=== PATIENT | female | born 1960 | race African-American/Black ===

== ENCOUNTER 2017-03-05 00:14 | Emergency (ER) | payer SELFPAY ==
[~2017-03-05] VITALS: Ht 172.7 cm; Wt 136.0 kg
[2017-03-05 01:07] LABS: BASOPHILS % 1.1 % (0.0-2.0); EOSINOPHILS % 1.5 % (0.0-5.0); HEMATOCRIT. 42.5 % (36.0-48.0); HEMOGLOBIN. 14.5 g/dL (12.0-16.0); LYMPHOCYTES % 23.2 % (20.0-50.0); MEAN CORPUSCULAR HEMOGLOBIN 32.6 pg (28.0-32.0); MEAN CORPUSCULAR VOLUME 95.6 fL (81.0-99.0); MEAN PLATELET VOLUME 8.1 fl (7.4-10.4); MONOCYTES % 9.9 % (2.0-8.0); NEUTROPHILS % 64.3 % (40.0-76.0); PLATELET 213 x1000/uL (130-400); RED BLOOD CELL COUNT 4.45 mill/uL (4.2-5.4); RED CELL DISTRIBUTION WIDTH 16.8 % (11.6-14.6)
[2017-03-05 01:20] LABS: CARBON DIOXIDE 30 mEq/L (21-32); CHLORIDE 102 mEq/L (98-107)
[2017-03-05] MEDS ORDERED: ACETAMINOPHEN 325MG TABLET PO ONE (02:15)
[2017-03-05 04:10] VITALS: BP 143/79
== END 2017-03-05 04:48 | disposition home or self-care (01) ==
LOC: ER 00:28
DX: I10 Essential (primary) hypertension (principal); E11.9 Type 2 diabetes mellitus without complications; J45.909 Unspecified asthma, uncomplicated; F17.200 Nicotine dependence, unspecified, uncomplicated; Z98.890 Other specified postprocedural states
CPT/HCPCS: 36415; 80053; 85025; 93005; 99285; Z7610

== ENCOUNTER 2017-09-02 05:45 | Emergency (ER) | payer BC, MEDICAID ==
[~2017-09-02] VITALS: Ht 167.6 cm; Wt 136.0 kg
[2017-09-02] MEDS ORDERED: ACETAMINOPHEN 325MG TABLET PO ONE (09:00)
[2017-09-02 10:25] VITALS: BP 118/76
== END 2017-09-02 11:30 | disposition home or self-care (01) ==
LOC: ER 06:04
DX: M25.562 Pain in left knee (principal); M25.572 Pain in left ankle and joints of left foot; V48.4XXA Person boarding or alighting a car injured in noncollision transport accident, initial encounter; Y93.89 Activity, other specified; Y92.89 Other specified places as the place of occurrence of the external cause; I11.0 Hypertensive heart disease with heart failure; I50.9 Heart failure, unspecified; J44.9 Chronic obstructive pulmonary disease, unspecified; E11.9 Type 2 diabetes mellitus without complications; Z88.5 Allergy status to narcotic agent
CPT/HCPCS: 73562; 73610; 99284; Z7610

== ENCOUNTER 2018-08-17 08:09 | Inpatient (IN) | payer BC ==
[~2018-08-17] VITALS: Ht 172.7 cm; Wt 134.7 kg
[2018-08-17] MEDS ORDERED: KETOROLAC 30MG/ML VIAL IV STA (08:27)
[2018-08-17] MEDS ORDERED: ONDANSETRON HCL 4MG/2ML INJ IV STA (08:27)
[2018-08-17 09:10] LABS: BASOPHILS % 0.8 % (0.0-2.0); EOSINOPHILS % 0.8 % (0.0-5.0); HEMATOCRIT. 39.3 % (36.0-48.0); LYMPHOCYTES % 18.7 % (20.0-50.0); MEAN CORPUSCULAR HEMOGLOBIN 32.3 pg (28.0-32.0); MEAN CORPUSCULAR VOLUME 97.5 fL (81.0-99.0); MEAN PLATELET VOLUME 8.5 fl (7.4-10.4); NEUTROPHILS % 74.7 % (40.0-76.0); PLATELET 236 x1000/uL (130-400); RED BLOOD CELL COUNT 4.04 mill/uL (4.2-5.4); RED CELL DISTRIBUTION WIDTH 15.4 % (11.6-14.6)
[2018-08-17 09:13] LABS: CLARITY URINE CLOUDY (CLEAR); COLOR URINE YELLOW (YELLOW); KETONES URINE NEGATIVE (NEGATIVE); LEUKOCYTE ESTERASE URINE NEGATIVE (NEGATIVE); NITRITE URINE NEGATIVE (NEGATIVE); OCCULT BLOOD URINE NEGATIVE (NEGATIVE); PH URINE 6.5 (4.5-8.0); PROTEIN URINE NEGATIVE (NEGATIVE); SPECIFIC GRAVITY URINE 1.012 (1.005-1.030); UROBILINOGEN URINE 0.2 E.U./dL (0.2-1.0)
[2018-08-17 09:14] LABS: CHLORIDE 106 mEq/L (98-107)
[2018-08-17] MEDS ORDERED: ONDANSETRON HCL 4MG/2ML INJ IV ONE (10:30)
[2018-08-17] MEDS ORDERED: SODIUM CHLORIDE 0.9% 1,000 ML IV ONE (10:55)
[2018-08-17 12:02] LABS: INR 1.1; PROTHROMBIN TIME 10.7 sec (9.1-11.1)
[2018-08-17] MEDS ORDERED: IPRATROPIUM/ALBUTEROL 0.5-3(2.5)MG/3ML NEB INH PRN (12:45)
[2018-08-17] MEDS ORDERED: CLONIDINE 0.1MG TABLET PO PRN (12:45)
[2018-08-17] MEDS ORDERED: DOCUSATE SODIUM 100MG CAPSULE PO PRN (12:45)
[2018-08-17] MEDS ORDERED: MAGNESIUM/ALUMINUM HYDROXIDE/SIMETHICONE 30ML UDC PO PRN (12:45)
[2018-08-17] MEDS ORDERED: ACETAMINOPHEN 325MG TABLET PO PRN (12:45)
[2018-08-17 14:29] LABS: *AMPHETAMINES SCREEN URINE NEGATIVE (NEGATIVE); *BARBITURATES SCREEN URINE NEGATIVE (NEGATIVE); *BENZODIAZEPINES SCREEN URINE NEGATIVE (NEGATIVE)
[2018-08-17 14:30] LABS: *COCAINE SCREEN URINE NEGATIVE (NEGATIVE); CANNABINOID URINE SCREEN NEGATIVE (NEGATIVE); METHADONE URINE SCREEN NEGATIVE (NEGATIVE); OPIATES URINE SCREEN NEGATIVE (NEGATIVE); PHENCYCLIDINE URINE SCREEN NEGATIVE (NEGATIVE)
[2018-08-17 17:30] VITALS: BP 153/85
[2018-08-17 17:51] VITALS: BP 153/85
[2018-08-17] MEDS ORDERED: CEFTRIAXONE 1 G PREMIX 50 ML IV SCH (18:30)
[2018-08-17 19:39] LABS: CHLORIDE 105 mEq/L (98-107)
[2018-08-17 19:48] LABS: CREATINE KINASE 272 IU/L (26-192)
[2018-08-17 19:51] LABS: CREATINE KINASE MB FRACTION 6.8 ng/mL (0.5-3.6)
[2018-08-17 20:00] VITALS: BP 154/87
[2018-08-17] MEDS: SODIUM CHLORIDE 0.9% 1,000 ML IV SCH (22:03)
[2018-08-17] MEDS: ENOXAPARIN 40MG/0.4ML SYR SUBCUT SCH (22:11)
[2018-08-17] MEDS: ONDANSETRON HCL 4MG/2ML INJ IV PRN (22:39)
[2018-08-17 23:52] LABS: CREATINE KINASE 288 IU/L (26-192)
[2018-08-18] VITALS: BP 145/86
[2018-08-18] MEDS: ONDANSETRON HCL 4MG/2ML INJ IV PRN ×2 (03:56→12:14)
[2018-08-18 04:00] VITALS: BP 152/83
[2018-08-18] MEDS: SODIUM CHLORIDE 0.9% 1,000 ML IV SCH ×2 (05:16→18:40)
[2018-08-18 07:10] LABS: BASOPHILS % 0.3 % (0.0-2.0); HEMATOCRIT. 38.7 % (36.0-48.0); HEMOGLOBIN. 12.9 g/dL (12.0-16.0); LYMPHOCYTES % 11.1 % (20.0-50.0); MEAN CORPUSCULAR HEMOGLOBIN 32.1 pg (28.0-32.0); MEAN CORPUSCULAR VOLUME 96.4 fL (81.0-99.0); MEAN PLATELET VOLUME 8.8 fl (7.4-10.4); MONOCYTES % 7.3 % (2.0-8.0); NEUTROPHILS % 81.3 % (40.0-76.0); PLATELET 223 x1000/uL (130-400); RED BLOOD CELL COUNT 4.01 mill/uL (4.2-5.4); RED CELL DISTRIBUTION WIDTH 15.6 % (11.6-14.6)
[2018-08-18 08:00] VITALS: BP 167/86
[2018-08-18] MEDS ORDERED: DEXTROSE 50% WATER 50ML SYRINGE IV PRN (08:15)
[2018-08-18] MEDS: ENOXAPARIN 40MG/0.4ML SYR SUBCUT SCH ×2 (08:52→20:20)
[2018-08-18 12:00] VITALS: BP 144/80
[2018-08-18] MEDS: BLOOD SUGAR DIAGNOSTIC STRIP TEST SCH ×3 (12:29→18:00)
[2018-08-18] MEDS: METOCLOPRAMIDE HCL 10MG/2ML VIAL IV SCH ×2 (15:25→18:41)
[2018-08-18 15:32] VITALS: BP 164/95
[2018-08-18] MEDS: PANTOPRAZOLE SODIUM 40 MG/VIAL IV SCH (16:57)
[2018-08-18] MEDS: INSULIN LISPRO 100 UNITS/ML SUBCUT SCH ×3 (18:00→20:26)
[2018-08-18] MEDS: SUCRALFATE 1G TABLET PO SCH ×2 (18:05→20:20)
[2018-08-18] MEDS: DILTIAZEM HCL 60MG TABLET PO SCH (18:05)
[2018-08-18] MEDS ORDERED: CEFTRIAXONE 1 G PREMIX 50 ML IV SCH (18:30)
[2018-08-18 20:00] VITALS: BP 129/80
[2018-08-19 00:05] VITALS: BP 115/60
[2018-08-19] MEDS: METOCLOPRAMIDE HCL 10MG/2ML VIAL IV SCH ×3 (00:07→12:00)
[2018-08-19] MEDS: DILTIAZEM HCL 60MG TABLET PO SCH ×3 (00:07→12:00)
[2018-08-19 04:00] VITALS: BP 117/67
[2018-08-19] MEDS ORDERED: RITO100T PO (05:19)
[2018-08-19] MEDS ORDERED: DARU800T PO (05:19)
[2018-08-19] MEDS ORDERED: LAMI150T23 PO (05:19)
[2018-08-19] MEDS: SODIUM CHLORIDE 0.9% 1,000 ML IV SCH (05:37)
[2018-08-19] MEDS: BLOOD SUGAR DIAGNOSTIC STRIP TEST SCH (07:40)
[2018-08-19 07:43] LABS: BASOPHILS % 0.8 % (0.0-2.0); EOSINOPHILS % 0.7 % (0.0-5.0); HEMATOCRIT. 36.9 % (36.0-48.0); HEMOGLOBIN. 12.3 g/dL (12.0-16.0); LYMPHOCYTES % 15.3 % (20.0-50.0); MEAN CORPUSCULAR HEMOGLOBIN 32.7 pg (28.0-32.0); MEAN CORPUSCULAR VOLUME 98.3 fL (81.0-99.0); MONOCYTES % 14.1 % (2.0-8.0); NEUTROPHILS % 69.1 % (40.0-76.0); PLATELET 191 x1000/uL (130-400); RED BLOOD CELL COUNT 3.76 mill/uL (4.2-5.4); RED CELL DISTRIBUTION WIDTH 15.3 % (11.6-14.6)
[2018-08-19 08:00] VITALS: BP 105/48
[2018-08-19] MEDS: INSULIN LISPRO 100 UNITS/ML SUBCUT SCH (08:10)
[2018-08-19] MEDS: ENOXAPARIN 40MG/0.4ML SYR SUBCUT SCH (09:15)
[2018-08-19] MEDS: SUCRALFATE 1G TABLET PO SCH (09:15)
[2018-08-19] MEDS: PANTOPRAZOLE SODIUM 40 MG/VIAL IV SCH (09:43)
[2018-08-19] MEDS ORDERED: PROT40 MT (09:55)
[2018-08-19] MEDS ORDERED: GLIP5TAB12 MT (09:55)
[2018-08-19] MEDS ORDERED: ATOR20TA65 MT (09:55)
[2018-08-19] MEDS ORDERED: DILT60TA35 PO (09:55)
[2018-08-19 11:27] VITALS: BP 120/75
[2018-08-19 12:00] VITALS: BP 118/64
== END 2018-08-19 13:00 | disposition home or self-care (01) | DRG 392 ==
LOC: ER 08:23 → 6EST 11:36 → EDBEDREQ 11:38 → ENRESERV 14:13 → 6EST 17:47 → 7WST 08-18 12:42
PROVIDERS: ADMIT Internal Medicine; ATTEND Internal Medicine
DX: K29.70 Gastritis, unspecified, without bleeding (principal); I13.0 Hypertensive heart and chronic kidney disease with heart failure and stage 1 through stage 4 chronic kidney disease, or unspecified chronic kidney disease; I42.0 Dilated cardiomyopathy; N17.9 Acute kidney failure, unspecified; E11.22 Type 2 diabetes mellitus with diabetic chronic kidney disease; E66.01 Morbid (severe) obesity due to excess calories; E78.5 Hyperlipidemia, unspecified; F17.210 Nicotine dependence, cigarettes, uncomplicated; I27.20 Pulmonary hypertension, unspecified; I50.9 Heart failure, unspecified; J44.9 Chronic obstructive pulmonary disease, unspecified; N18.3 Chronic kidney disease, stage 3 (moderate); J45.909 Unspecified asthma, uncomplicated; E11.43 Type 2 diabetes mellitus with diabetic autonomic (poly)neuropathy; K31.84 Gastroparesis; Z79.84 Long term (current) use of oral hypoglycemic drugs; Z88.6 Allergy status to analgesic agent
CPT/HCPCS: 36415; 71045; 76700; 78582; 80048; 80061; 80305; 82550; 82553; 82962; 83036; 83735; 84443; 84484; 85379; 93005; 93306; 93880; 93970; 96374; 96375; 99285; A9558; C9113; J0696; J1650; J1815; J1885; J2405; J2765; J7030

== ENCOUNTER 2018-11-22 18:50 | Emergency (ER) | payer BC ==
[~2018-11-22] VITALS: Ht 165.1 cm; Wt 138.1 kg
[~2018-11-22 18:50] MED LIST: ATOR20TA65 MT; DARU800T PO; DILT60TA35 PO; GLIP5TAB12 MT; LAMI150T23 PO; PROT40 MT; RITO100T PO
[2018-11-22 19:24] LABS: BASOPHILS % 0.8 % (0.0-2.0); EOSINOPHILS % 0.8 % (0.0-5.0); HEMATOCRIT. 42.6 % (36.0-48.0); HEMOGLOBIN. 14.2 g/dL (12.0-16.0); MEAN CORPUSCULAR HEMOGLOBIN 31.3 pg (28.0-32.0); MEAN CORPUSCULAR VOLUME 93.5 fL (81.0-99.0); MEAN PLATELET VOLUME 8.5 fl (7.4-10.4); MONOCYTES % 7.3 % (2.0-8.0); NEUTROPHILS % 79.1 % (40.0-76.0); PLATELET 242 x1000/uL (130-400); RED BLOOD CELL COUNT 4.55 mill/uL (4.2-5.4); RED CELL DISTRIBUTION WIDTH 16.7 % (11.6-14.6)
[2018-11-22 19:25] LABS: CHLORIDE 104 mEq/L (98-107)
[2018-11-22 19:27] LABS: PROTHROMBIN TIME 10.2 sec (9.1-11.1)
[2018-11-22 19:31] LABS: ETHANOL BLOOD < 10 mg/dL
[2018-11-22 19:34] LABS: LDL CHOLESTEROL 202 mg/dL (5-100)
[2018-11-22] MEDS ORDERED: ALTEPLASE 10 MG in SODIUM CHLORIDE 0.9% 250 ML IV PRN (20:00)
[2018-11-22] MEDS ORDERED: ALTEPLASE 81 MG in BAG 1 EACH IV ONE (20:30)
[2018-11-22] MEDS ORDERED: ALTEPLASE 100MG/VIAL IV NR (20:30)
[2018-11-22] MEDS ORDERED: *NO ASPIRIN X 24 HOURS XX SCH (20:30)
[2018-11-22] MEDS ORDERED: LORAZEPAM 2MG/ML CPJ IV ONE (21:15)
[2018-11-22] MEDS ORDERED: ONDANSETRON HCL 4MG/2ML INJ IV ONE (21:15)
[2018-11-22 21:18] VITALS: BP 152/94
== END 2018-11-23 07:11 | disposition short-term general hospital (02) ==
LOC: ER 18:50 → CANBEDREQ 11-23 16:18
DX: I63.9 Cerebral infarction, unspecified (principal)
CPT/HCPCS: 36415; 37195; 70450; 71045; 80053; 80320; 82962; 83721; 84484; 85025; 85610; 93005; 96374; 96375; 99285; J2060; J2405; J2997; Z7610; G0480